=== PATIENT | female | born 1990 | race Caucasian/White ===

== ENCOUNTER 2019-05-15 21:04 | Emergency (ER) | payer SELFPAY ==
[~2019-05-15] VITALS: Ht 167.6 cm; Wt 81.4 kg
[2019-05-15] MEDS ORDERED: PNV11TAB PO (21:09)
[2019-05-15 22:17] VITALS: BP 135/67
== END 2019-05-15 22:25 | disposition left against medical advice (07) ==
LOC: EMS 21:04
DX: O9A.212 Injury, poisoning and certain other consequences of external causes complicating pregnancy, second trimester (principal); S90.862A Insect bite (nonvenomous), left foot, initial encounter; S91.332A Puncture wound without foreign body, left foot, initial encounter; Z88.0 Allergy status to penicillin; Z90.49 Acquired absence of other specified parts of digestive tract; Z3A.16 16 weeks gestation of pregnancy; Z53.20 Procedure and treatment not carried out because of patient's decision for unspecified reasons; W57.XXXA Bitten or stung by nonvenomous insect and other nonvenomous arthropods, initial encounter; Y93.89 Activity, other specified; Y92.89 Other specified places as the place of occurrence of the external cause; Y99.8 Other external cause status

== ENCOUNTER 2019-07-02 04:15 | Observation (INO) | payer OTHER ==
[~2019-07-02] VITALS: Ht 167.6 cm; Wt 85.7 kg
[~2019-07-02 04:15] MED LIST: PNV11TAB PO
[2019-07-02 05:48] VITALS: BP 118/59
== END 2019-07-02 09:40 | disposition home or self-care (01) ==
LOC: 4S 04:15
PROVIDERS: ADMIT Obstetrics & Gynecology; ATTEND Obstetrics & Gynecology
DX: O26.892 Other specified pregnancy related conditions, second trimester (principal); R10.9 Unspecified abdominal pain; Z3A.23 23 weeks gestation of pregnancy; Z98.890 Other specified postprocedural states
CPT/HCPCS: 76811; 81002; G0378